=== PATIENT | male | born 1970 | race Caucasian/White ===

== ENCOUNTER 2017-08-19 16:20 | Outpatient (CLI) | payer BC ==
--- NOTE | 2017-08-19 17:19 | Diagnostic Imaging Report ---
[facility] [address] [facility].[address] [address] Report Submission Date: Aug 19, 2017 4:48:52 PM RAG INSPECTOR Patient Study Name: IRWIN DOMINGUEZ Date: Aug 19, 2017 4:29:39 PM RAG INSPECTOR Modality Type: CR Gender: M Description: SHOULDER : 70 Institution: [facility] Physician: ESTELA MUÑOZ Examination: Plain film shoulder History: Discomfort Comparison exams: None provided Findings: 2 views of the shoulder demonstrate normal cortical margins. No evidence for fracture or dislocation. No soft tissue abnormality Impression: No acute osseous process. Electronically signed on Aug 19, 2017 4:48:52 PM RAG INSPECTOR by: Black AGUILA
== END 2017-08-19 16:21 ==
LOC: RAD 16:20
PROVIDERS: ATTEND Family Medicine
DX: M25.512 Pain in left shoulder (principal)
CPT/HCPCS: 73030